=== PATIENT | female | born 1960 | race Caucasian/White ===

== ENCOUNTER → 2016-12-31 | Outpatient (CLI) | payer OTHER ==
--- NOTE | 2016-12-31 12:32 | RAD ---
Left middle finger, 3 views, 12/31/2016: History: Follow-up finger fracture Comparison is made to a study from 12/19/2016. A partially radiopaque splint is in place distally. There is a fracture of the proximal end of the distal phalanx involving the DIP joint. There is mild unchanged distraction of the fracture fragments. The alignment appears unchanged. No new abnormality is detected. IMPRESSION: Stable distal phalangeal fracture
== END | disposition home or self-care (01) ==
LOC: RAD 08:00
PROVIDERS: ATTEND Nurse Practitioner Gerontology
DX: S62.633D Displaced fracture of distal phalanx of left middle finger, subsequent encounter for fracture with routine healing (principal); X58.XXXD Exposure to other specified factors, subsequent encounter
CPT/HCPCS: 73140